=== PATIENT | male | born 1960 | race Caucasian/White ===

== ENCOUNTER 2022-07-29 00:36 | Day surgery (SDC) | payer OTHER, SELFPAY ==
[2022-07-17 14:54] VITALS: BMI 30.5
[2022-07-29 07:30] VITALS: BP 120/80; PULSE 18; RESP 18; TEMP 36.1; O2SAT 100
[2022-07-29] MEDS: LACTATED RINGERS 1,000 ML 150 ML IV CONT (07:40)
--- NOTE | 2022-07-29 08:05 | P.PNAN_ITS ---
Anes - Initial Pre Proc Eval Procedure: Operation Date: 07/29/22 08:30 Proposed Procedures p Screening Colonoscopy - Willard Reeder MD Date/Time: 07/29/22 08:05 Surgeon: Willard Reeder MD Pre Op Diagnosis: neoplasm screening Patient Data Age: 62 Gender: M Height: 1.88 m Weight: 111.1 kg Last Vital Signs Temp 96.9 F L 07/29/22 07:30 Pulse 18 L 07/29/22 07:30 Resp 18 07/29/22 07:30 BP 120/80 07/29/22 07:30 Pulse Ox 100 07/29/22 07:30 O2 Del Method Room Air 07/29/22 07:30 Allergies Allergy/AdvReac Type Severity Reaction Status Date / Time No Known Allergies Allergy Unverified 07/29/22 07:29 Home Medications Medication Instructions Recorded Confirmed Type No Home Medications 07/17/22 07/17/22 History Patient hx anesthesia problems: none Family hx anesthesia problems: none Results Review: All pre-operative results and documents have been reviewed as part of the pre- operative evaluation. [facility] Family History Family History (Updated 09/06/12 @ 10:27 by DOCTOR UNKNOWN) Other Family history of cardiovascular disease Social History Social History Smoking status: Former smoker Tobacco type: cigarettes Alcohol intake: current Drinks per week: 5 Substance use type: does not use Living arrangements: with family Spiritual care concerns: No Anes - Eval Final PreProcedure Day of Procedure 07/29/22 08:05 Patient weight: obese Heart: regular rate and rhythm Lungs: clear to auscultation Airway: Mallampati scale class II Neurological: alert and oriented Last oral intake: >/= 8 hours ASA classification: II Emergent: no Anesthetic plan: proceed Anesthesia type and monitoring: general GIVS and standard monitoring Results Review: All pre-operative results and documents have been reviewed as part of the pre-operative evaluation. Informed Consent: The patient's anesthetic plan and its attendant risks and benefits were discussed with the patient/family/POA. Questions were solicited and answers provided to the satisfaction of the patient/family/POA.
--- NOTE | 2022-07-29 08:18 | PM.HPGS ---
History of Present Illness History of Present Illness Consent: Risks, benefits, and alternatives have been discussed and questions answered. Patient agrees to proceed with procedure. Chief complaint: neoplasm screening Narrative: Jasson Burton is a 62 year old male Presents for screening colonoscopy. Patient's current weight appetite bowel movements are normal. Patient denies abdominal pain. He has had no bleeding. Family history noncontributory. Patient has previous exam 10 years ago was unremarkable. Review of Systems Review of Systems: Review of systems noncontributory. [facility] Family History Family History (Updated 09/06/12 @ 10:27 by DOCTOR UNKNOWN) Other Family history of cardiovascular disease Social History Social History Smoking status: Former smoker Tobacco type: cigarettes Alcohol intake: current Drinks per week: 5 Substance use type: does not use Living arrangements: with family Spiritual care concerns: No Meds Home Medications and Allergies Home Medications Medication Instructions Recorded Confirmed Type No Home Medications 07/17/22 07/17/22 History Allergies Allergy/AdvReac Type Severity Reaction Status Date / Time No Known Allergies Allergy Unverified 07/29/22 07:29 Vital Signs Vital Signs - 24 hr 07/29/22 07:30 Temperature 96.9 F L Pulse Rate 18 L Respiratory Rate 18 Blood Pressure 120/80 Pulse Oximetry 100 Oxygen Delivery Room Air Exam Narrative: Physical exam reveals patient to be alert. Vital signs stable. HEENT exam is unremarkable. Patient is anicteric. Lungs are clear to auscultation and percussion. Heart is without murmur or extra sounds. Abdomen bowel sounds present soft nontender with no organomegaly. Digital external rectal exam is normal. Assessment and Plan Assessment and plan (1) Encounter for screening colonoscopy: Code(s): Z12.11 - Encounter for screening for malignant neoplasm of colon Status: Acute Assessment and Plan: Patient presents for screening colonoscopy. Appears to be at average risk for colon polyps. Further recommendations may be given after endoscopy.
[2022-07-29 08:49] VITALS: BP 128/83; PULSE 74; RESP 18; O2SAT 99
[2022-07-29 08:59] VITALS: BP 146/81; PULSE 70; RESP 18; O2SAT 98
[2022-07-29 09:09] VITALS: BP 134/86; PULSE 80; RESP 18; O2SAT 98
== END 2022-07-29 09:12 | disposition home or self-care (01) ==
PROVIDERS: PCP Family Medicine; Visit Provider Internal Medicine Gastroenterology
PROC: 0DJD8ZZ Inspection of Lower Intestinal Tract, Via Natural or Artificial Opening Endoscopic (ICD-10-PCS; CPT 45378; principal; 2022-07-29 08:30)
DX: Z12.11 Encounter for screening for malignant neoplasm of colon (principal); D12.2 Benign neoplasm of ascending colon; D12.8 Benign neoplasm of rectum; K64.8 Other hemorrhoids; Z87.891 Personal history of nicotine dependence; E66.9 Obesity, unspecified; Z68.31 Body mass index [BMI] 31.0-31.9, adult
CPT/HCPCS: 45385; 88305; J2704; J7120